=== PATIENT | female | born 1950 | race Caucasian/White ===

== ENCOUNTER 2020-01-07 20:10 | Emergency (ER) | payer MEDICARE, SELFPAY ==
[2020-01-07 20:11] VITALS: BP 189/89; PULSE 80; RESP 20; TEMP 36.9; O2SAT 95; BMI 42.3
--- NOTE | 2020-01-07 20:29 | RAD_ITS ---
STUDY: X-RAY - RIGHT ELBOW REASON FOR EXAM: Female, 69 years old. Fell at the store, elbow pain. TECHNIQUE: 3 view(s) of the elbow. COMPARISON: None. FINDINGS: Normal visualized humerus, radius and ulna. Normal radiocapitellar and ulnotrochlear articulations. The soft tissue structures are unremarkable. There is no demonstrated fracture. RAD/Elbow min 3 Views IMPRESSION: Normal x-ray examination of the elbow. Electronically Signed: Sha Johnson MD at 21:11 EDT , Service support ,
--- NOTE | 2020-01-07 20:29 | RAD_ITS ---
STUDY: X-RAY - RIGHT FOOT CLINICAL: Female, 69 years old. Fell at the store, foot pain. TECHNIQUE: 3 view(s) of the foot. COMPARISON: None. FINDINGS: There is diffuse demineralization. There is a moderate plantar spur. There is an extremely faint possible fracture through the anterior process of the calcaneus with no displacement or deformity. Recommend further evaluation with CT scan. Normal visualized subtalar, talonavicular, calcaneocuboid, tarsal and tarsometatarsal articulations. Normal metatarsi. There is degenerative arthrosis of the metatarsophalangeal joint of the hallux . Normal tibial and fibular sesamoid bones. Normal interphalangeal joint of the great toe. Normal phalanges of the great toe. Normal second through fifth metatarsophalangeal joints. Normal interphalangeal joints and phalanges of the lesser toes. The soft tissue structures are unremarkable. RAD/Foot min 3 Views IMPRESSION: Suspicion of subtle nondisplaced fracture of the calcaneus. CT scan is recommended. Electronically Signed: Sha Johnson MD at 21:14 EDT , Service support ,
--- NOTE | 2020-01-07 20:29 | RAD_ITS ---
STUDY: X-RAY CHEST REASON FOR EXAM: Female, 69 years old. Fell at the store. TECHNIQUE: Frontal and lateral views of the chest. COMPARISON: None. FINDINGS: The lungs are clear and expanded. There is no demonstrated pleural abnormality. There is borderline cardiomegaly. There has been previous CABG. Normal mediastinum and mehran. Normal visualized pulmonary arteries. Normal visualized aortic arch and descending thoracic aorta. There are diffuse degenerative changes of the visualized thoracic spine. There is degenerative osteoarthritis of the bilateral shoulders. There is no demonstrated abnormality of the visualized soft tissue structures of the upper abdomen. RAD/Chest PA and Lateral IMPRESSION: No definite acute or significant abnormality seen. Electronically Signed: Sha Johnson MD at 21:21 EDT , Service support ,
--- NOTE | 2020-01-07 20:29 | RAD_ITS ---
STUDY: X-RAY - RIGHT KNEE REASON FOR EXAM: Female, 69 years old. Fell at the store, knee pain. TECHNIQUE: 4 view(s) of the knee. COMPARISON: None. FINDINGS: Normal visualized distal femur. Normal visualized proximal tibia and fibula. Normal proximal tibiofibular articulation. There is no demonstrated fracture. 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 There is severe degenerative arthrosis of the lateral femorotibial compartment with severe joint space narrowing. There is severe degenerative arthrosis of the patellofemoral articulation. There is a moderate volume joint effusion. The soft tissue structures are unremarkable. RAD/Knee 4 or More Views IMPRESSION: No fracture or dislocation. Degenerative changes. Electronically Signed: Sha Johnson MD at 21:20 EDT , Service support ,
--- NOTE | 2020-01-07 20:30 | ED.VIS.GEN ---
History of Present Illness Chief Complaint: Fall Informant: Patient, Family Onset: Today Current Severity: Mild Maximum Severity: Moderate Narrative: Patient presents after a fall at the local store. Patient states he was walking at the store when she tripped over the rug and fell. She complains of pain to her right elbow, right lower ribs, right knee, right foot, and right ankle. She states she try to get up and walk but had significant pain under the arch of her right foot. She denies striking her head. No loss of consciousness. She denies neck pain. She is not currently on anticoagulants. - Past Medical History (1) Hypertension Status: Chronic (2) Hx of CABG Status: Chronic (3) COPD (chronic obstructive pulmonary disease) Status: Chronic (4) Anxiety Status: Chronic Past Medical History - Allergies and Home Meds Allergies/Adverse Reactions: Allergies morphine Allergy (Verified 01/07/20 20:15) Vomiting high blood pressure Penicillins [PCN] Allergy (Verified 01/07/20 20:15) Rash Primary Care Physician: Anabel Wilson PA [Primary Care Provider] - Prior records reviewed: Yes Surgical History: coronary bypass surgery Lives: With Family Smoking Status: Former smoker Review of Systems General: Denies: Chills, Fever Eyes: Denies: Visual changes - bilaterally ENT: Denies: Bilateral ear pain Cardiovascular: Reports: Chest pain - Right lower rib pain Respiratory: Denies: Dyspnea, Cough Gastrointestinal: Denies: Abdominal pain, Nausea, Vomiting, Diarrhea Musculoskeletal: Reports: Extremity Pain Skin: Denies: Rash Neurological: Denies: Headache, Parasthesia Hematologic: Denies: Easy bruising, Easy bleeding Allergy: Denies: Uticaria Physical Exam Vital Signs/Narrative: Vital Signs Temp Pulse Resp BP Pulse Ox 01/07/20 20:11 98.5 F 80 20 H 189/89 H 95 Inital Vital Signs reviewed: Yes General: Well nourished, Well developed Head: Normocephalic Eyes: Perrl, EOMI ENT: Moist mucous membranes Neck: Supple, - - No C-spine tenderness. Cardiovascular: Regular rate, Regular rhythm Respiratory: No distress, CTA bilaterally, Chest tenderness - Mild tenderness to the right lower ribs. No abrasions or ecchymosis noted. No crepitus. Abdomen: Soft, Nontender Extremities: - - Mild tenderness to the right elbow. Full range of motion is noted. No tenderness noted at the right hip. Mild right knee tenderness diffusely. Good range of motion. Diffuse tenderness throughout the right ankle and foot. Mild edema is noted. Neurological: Alert, Oriented x3 Psychological: Normal affect Diagnostic/Tx/Re-eval Impressions Chest X-Ray 01/07/20 20:29 IMPRESSION: No definite acute or significant abnormality seen. Electronically Signed: Sha Johnson MD at 21:21 EDT , Service support , Elbow X-Ray 01/07/20 20:29 IMPRESSION: Normal x-ray examination of the elbow. Electronically Signed: Sha Johnson MD at 21:11 EDT , Service support , Foot X-Ray 01/07/20 20:29 IMPRESSION: Suspicion of subtle nondisplaced fracture of the calcaneus. CT scan is recommended. Electronically Signed: Sha Johnson MD at 21:14 EDT , Service support , Knee X-Ray 01/07/20 20:29 IMPRESSION: No fracture or dislocation. Degenerative changes. Electronically Signed: Sha Johnson MD at 21:20 EDT , Service support , Ankle X-Ray 01/07/20 20:45 IMPRESSION: No definite fracture or dislocation of the ankle. Strong suspicion of very subtle nondisplaced fracture of the calcaneus. CT scan of the foot is recommended. Electronically Signed: Sha Johnson MD at 21:13 EDT , Service support , Lower Extremity CT 01/07/20 21:24 IMPRESSION: Comminuted fracture of the anterior aspect of the calcaneus as described above. Boehler''s angle is maintained. Electronically Signed: Alonzo Hsu MD at 22:05 EDT Tel , Service support , 01/07/20 20:29 Chest PA and Lateral [RAD] Stat Elbow min 3 Views [RAD] Stat Foot min 3 Views [RAD] Stat Knee 4 or More Views [RAD] Stat 01/07/20 20:45 Ankle min 3 Views [RAD] Stat 01/07/20 21:24 CT Lower [Extremity Lower without Contra] [CT] Stat - Medical Decision Making Patient was given 1 tab of Irvine for pain. Test results are discussed with patient and son at bedside. Patient was discussed with Dr. aden, on-call for podiatry. He reviewed the images. He would like her placed in a posterior well-padded splint. She is to remain nonweightbearing. After discussion with patient and son at bedside they do feel that they can get her around at home in a wheelchair and they have a walker that she can use. I will send a prescription for Irvine to the pharmacy for her. Patient was placed in a posterior Ortho-Glass splint by myself. Following splint application she has good cap refill and can wiggle toes. ED Disposition - Plan for ED Patient: Disposition: Home or Assisted Living Diagnosis: Calcaneus fracture Instructions: ED Mechanical Fall, ED FOOT FRACTURE Prescriptions: Hydrocodone Bitart/Apap 5-325 [Irvine 5MG-325MG] 1 tablet PO Q6H PRN PRN 3 Days #14 tablet PRN Reason: Pain Score 4-10/10 Transmission Status: Received by [facility]/pharmacy #[id number] Referrals: David Acevedo DPM [STAFF PHYSICIAN] - Additional Instructions: Dr Acevedo's office will call you on Thursday to set up an appointment to be seen this week. Please try to not put any weight on your right foot.
[2020-01-07] MEDS: HYDROcodone Bitartrate/Apap 5/325 Tablet PO (20:36)
--- NOTE | 2020-01-07 20:45 | RAD_ITS ---
STUDY: X-RAY - RIGHT ANKLE REASON FOR EXAM: Female, 69 years old. Fell at store, ankle pain. TECHNIQUE: 3 view(s) of the ankle. COMPARISON: None. FINDINGS: Normal visualized distal tibia and fibula. Normal medial and lateral malleoli. Normal tibiotalar articulation and ankle mortise. There is a moderate plantar spur. There is an extremely faint possible fracture through the anterior process of the calcaneus with no displacement or deformity. Recommend further evaluation with CT scan. The visualized subtalar, talonavicular, calcaneocuboid and tarsal articulations are normal. There is diffuse soft tissue swelling. RAD/Ankle min 3 Views IMPRESSION: No definite fracture or dislocation of the ankle. Strong suspicion of very subtle nondisplaced fracture of the calcaneus. CT scan of the foot is recommended. Electronically Signed: Sha Johnson MD at 21:13 EDT , Service support ,
--- NOTE | 2020-01-07 21:24 | CT_ITS ---
STUDY: CT FOOT WITHOUT CONTRAST, RIGHT REASON FOR EXAM: Female, 69 years old. FALL,RT FOOT AND ANKLE PAIN,UNABLE TO WALK ON FOOT RADIATION DOSAGE (If Supplied By Facility): CTDIvol = ( 15.35 ) mGy, DLP = ( 419.00 ) mGycm. Individualized dose optimization techniques were used for this CT.? TECHNIQUE: Axial CT images of the [ right foot ] were performed without contrast followed by sagittal and coronal reconstructions. COMPARISON: Radiographs same day FINDINGS: A comminuted calcaneus fracture is noted. Fracture lines extend across the sustentaculum phillip, to the articular aspect of the posterior facet, and to the plantar anterior calcaneus cortex. Boehler''s angle is maintained. No joint dislocations are seen. Dorsal and plantar calcaneus spurs. Diffuse hindfoot osteoarthritis. First metatarsophalangeal osteoarthritis. Diffuse subcutaneous edema. No drainable fluid collection. No well-defined soft tissue hemorrhage. Visualized tendons are grossly intact by noncontrast CT. CT/Extremity Lower without Contra IMPRESSION: Comminuted fracture of the anterior aspect of the calcaneus as described above. Boehler''s angle is maintained. Electronically Signed: Alonzo Hsu MD at 22:05 EDT Tel , Service support ,
[2020-01-07 22:44] VITALS: BP 165/82; PULSE 74; RESP 16; O2SAT 98
[2020-01-07 23:06] VITALS: BP 165/82; PULSE 74; RESP 16; O2SAT 98
== END 2020-01-07 23:07 | disposition home or self-care (01) ==
PROVIDERS: Emergency Provider Emergency Medicine
DX: S92.021A Displaced fracture of anterior process of right calcaneus, initial encounter for closed fracture (principal); W01.0XXA Fall on same level from slipping, tripping and stumbling without subsequent striking against object, initial encounter; Y93.01 Activity, walking, marching and hiking; Y92.512 Supermarket, store or market as the place of occurrence of the external cause; M17.11 Unilateral primary osteoarthritis, right knee; J44.9 Chronic obstructive pulmonary disease, unspecified; I10 Essential (primary) hypertension; F41.9 Anxiety disorder, unspecified; Z87.891 Personal history of nicotine dependence; Z88.0 Allergy status to penicillin; Z95.1 Presence of aortocoronary bypass graft
CPT/HCPCS: 71046; 73080; 73564; 73610; 73630; 73700; 99284